=== PATIENT | female | born 2000 | race Two or more races ===

== ENCOUNTER 2022-12-20 22:04 | Emergency (ER) | payer MEDICAID ==
[~2022-12-20] VITALS: Ht 165.1 cm; Wt 74.8 kg
[2022-12-20 22:26] VITALS: BP 131/78; TEMP 99.9; O2SAT 98
[2022-12-20] MEDS ORDERED: PROM118S5 PO (23:20)
[2022-12-20] MEDS ORDERED: IBUP-1955 PO (23:20)
== END 2022-12-20 23:42 | disposition home or self-care (01) ==
LOC: ER 22:40
DX: U07.1 COVID-19 (principal); Z79.899 Other long term (current) drug therapy
CPT/HCPCS: 99284; 71045; 87426; 87804 ×2; C9803